=== PATIENT | female | born 1960 | race American Indian/Alaskan Native ===

== ENCOUNTER 2016-11-16 13:41 | Emergency (ER) | payer BC ==
[2016-11-16 15:00] LABS: Bilirubin,Urine NEG (Negative); Blood,Urine NEG (Negative); Ketones,Urine NEG (Negative); Leukocyte Esterase,Urine NEG (Negative); Mucus,Urine FEW /HPF; Nitrite,Urine NEG (Negative); Protein,Urine <15 mg/dL mg/dL (Negative); Urobilinogen,Urine < 2.0 mg/dL (<2.0)
[2016-11-16 15:28] LABS: Alanine Aminotransferase 15 units/L (7-56); Albumin 4.1 g/dL (3.9-5); Alkaline Phosphatase 81 units/L (35-129); Anion Gap 17 mmol/L; BUN/Creatinine Ratio 13; Blood Urea Nitrogen 9 mg/dL (7-17); Calcium 9.3 mg/dL (8.4-10.2); Carbon Dioxide 26 mmol/L (22-30); Chloride 103.8 mmol/L (98-107); Glucose 88 mg/dL (65-100); Lipase 31 units/L (13-60); Potassium 4.1 mmol/L (3.6-5.0); Sodium 143 mmol/L (137-145); Total Protein 8.2 g/dL (6.3-8.2)
[2016-11-16 15:35] LABS: Eosinophils % (Auto) 0.6 % (0.0-4.3); Hematocrit 40.7 % (30.3-42.9); Hemoglobin 13.3 gm/dl (10.1-14.3); Mean Corpuscular HGB Conc 33 % (30-34); Mean Corpuscular Hemoglobin 29 pg (28-32); Mean Corpuscular Volume 88 fl (79-97); Platelet Count 254 K/mm3 (140-440); Red Blood Count 4.64 M/mm3 (3.65-5.03); Red Cell Distribution Width 14.4 % (13.2-15.2); White Blood Count 8.9 K/mm3 (4.5-11.0)
[2016-11-16 15:39] LABS: Basophils % (Auto) 0.8 % (0.0-1.8); Diff Status Complete
[2016-11-16] MEDS ORDERED: MORPHINE IV ONE (23:47)
[2016-11-16] MEDS ORDERED: ZOFRAN IV ONE (23:50)
--- NOTE | 2016-11-16 23:53 | Emergency Department Report ---
ED Abdominal Pain HPI - General Chief Complaint: Abdominal Pain Stated Complaint: RIGHT LOWER ABD PAIN Time Seen by Provider: 11/16/16 23:44 Source: patient Mode of arrival: Ambulatory Limitations: No Limitations - History of Present Illness Initial Comments: Patient is a 56-year-old femalecan past medical history who presents with right lower abdominal pain. Patient states that her symptoms have been going on since yesterday. They've increased since last night. Patient states that the pain is a 9 out of 10 in the right lower quadrant of her abdomen associated pain it's increased with movement nothing makes it better. She states that she' s had no nausea vomiting or diarrhea. She went to an urgent care but she was referred to come to the emergency department. Patient has not tried any over- the-counter medications for her pain. Severity scale (0 -10): 9 - Related Data Allergies Allergy/AdvReac Type Severity Reaction Status Date / Time No Known Allergies Allergy Verified 11/16/16 14:09 ED Review of Systems ROS: Stated complaint: RIGHT LOWER ABD PAIN Other details as noted in HPI Constitutional: denies: chills, fever Eyes: denies: eye pain, eye discharge, vision change ENT: denies: ear pain, throat pain Respiratory: denies: cough, shortness of breath, wheezing Cardiovascular: denies: chest pain, palpitations Endocrine: no symptoms reported Gastrointestinal: abdominal pain. denies: nausea, diarrhea Genitourinary: denies: urgency, dysuria, discharge Musculoskeletal: denies: back pain, joint swelling, arthralgia Skin: denies: rash, lesions Neurological: denies: headache, weakness, paresthesias Psychiatric: denies: anxiety, depression Hematological/Lymphatic: denies: easy bleeding, easy bruising ED Past Medical Hx - Past Medical History Previous Medical History?: No - Surgical History Past Surgical History?: No - Social History Smoking Status: Never Smoker Substance Use Type: None ED Physical Exam - General Limitations: No Limitations General appearance: alert, in no apparent distress - Head Head exam: Present: atraumatic, normocephalic - Eye Eye exam: Present: normal appearance - ENT ENT exam: Present: mucous membranes moist - Neck Neck exam: Present: normal inspection - Respiratory Respiratory exam: Present: normal lung sounds bilaterally. Absent: respiratory distress - Cardiovascular Cardiovascular Exam: Present: regular rate, normal rhythm. Absent: systolic murmur, diastolic murmur, rubs, gallop - GI/Abdominal GI/Abdominal exam: Present: soft, tenderness (in RLQ) - Extremities Exam Extremities exam: Present: normal inspection - Back Exam Back exam: Present: normal inspection - Neurological Exam Neurological exam: Present: alert, oriented X3 - Psychiatric Psychiatric exam: Present: normal affect, normal mood - Skin Skin exam: Present: warm, dry, intact, normal color. Absent: rash ED Course Vital Signs 11/16/16 11/16/16 11/16/16 14:09 21:36 23:25 Temperature 98.7 F 99.4 F Pulse Rate 78 74 Respiratory 16 14 Rate Blood Pressure 150/83 173/86 O2 Sat by Pulse 99 100 96 Oximetry 11/16/16 11/16/16 11/17/16 23:30 23:46 00:00 Temperature Pulse Rate Respiratory Rate Blood Pressure 169/100 148/89 151/81 O2 Sat by Pulse 95 97 94 Oximetry 11/17/16 11/17/16 11/17/16 00:16 00:30 01:30 Temperature Pulse Rate Respiratory Rate Blood Pressure 151/81 151/81 162/76 O2 Sat by Pulse 98 94 98 Oximetry ED Medical Decision Making - Lab Data Result diagrams: 11/16/16 14:42 11/16/16 14:42 Lab Results 11/16/16 11/16/16 11/16/16 Range/Units 14:42 14:42 Unknown WBC 8.9 (4.5-11.0) K/mm3 RBC 4.64 (3.65-5.03) M/mm3 Hgb 13.3 (10.1-14.3) gm/dl Hct 40.7 (30.3-42.9) % MCV 88 (79-97) fl MCH 29 (28-32) pg MCHC 33 (30-34) % RDW 14.4 (13.2-15.2) % Plt Count 254 (140-440) K/mm3 Lymph % (Auto) 30.4 (13.4-35.0) % [place]ock % (Auto) 5.2 (0.0-7.3) % Eos % (Auto) 0.6 (0.0-4.3) % Baso % (Auto) 0.8 (0.0-1.8) % Lymph # 2.7 (1.2-5.4) K/mm3 Bullock # 0.5 (0.0-0.8) K/mm3 Eos # 0.1 (0.0-0.4) K/mm3 Baso # 0.1 (0.0-0.1) K/mm3 Add Manual Diff Complete Seg Neutrophils % 63.0 (40.0-70.0) % Seg Neutrophils # 5.6 (1.8-7.7) K/mm3 Sodium 143 (137-145) mmol/L Potassium 4.1 (3.6-5.0) mmol/L Chloride 103.8 (98-107) mmol/L Carbon Dioxide 26 (22-30) mmol/L Anion Gap 17 mmol/L BUN 9 (7-17) mg/dL Creatinine 0.7 (0.7-1.2) mg/dL Estimated GFR > 60 ml/min BUN/Creatinine Ratio 13 % Glucose 88 (65-100) mg/dL Calcium 9.3 (8.4-10.2) mg/dL Total Bilirubin 0.50 (0.1-1.2) mg/dL AST 15 (5-40) units/L ALT 15 (7-56) units/L Alkaline Phosphatase 81 (35-129) units/L Total Protein 8.2 (6.3-8.2) g/dL Albumin 4.1 (3.9-5) g/dL Albumin/Globulin Ratio 1.0 % Lipase 31 (13-60) units/L Urine Color Yellow (Yellow) Urine Turbidity Clear (Clear) Urine pH 5.0 (5.0-7.0) Ur Specific [place] 1.019 (1.003-1.030) Urine Protein <15 mg/dl (Negative) mg/dL Urine Glucose (UA) Neg (Negative) mg/dL Urine Ketones Neg (Negative) mg/dL Urine Blood Neg (Negative) Urine Nitrite Neg (Negative) Urine Bilirubin Neg (Negative) Urine Urobilinogen < 2.0 (<2.0) mg/dL Ur Leukocyte Esterase Neg (Negative) Urine WBC (Auto) 2.0 (0.0-6.0) /HPF Urine RBC (Auto) 2.0 (0.0-6.0) /HPF U Epithel Cells (Auto) 3.0 (0-13.0) /HPF Urine Mucus Few /HPF - Radiology Data Radiology results: report reviewed, image reviewed CT abdomen: Shows no acute intra-abdominal process. - Medical Decision Making Chief medical diagnosis: Appendicitis Differential medical diagnosis: Cholelithiasis, pancreatitis, urinary tract infection On CBC, CMP, UA, IV pain medication, CT abdomen and po challenge Patient's laboratory and imaging findings are unremarkable. Patient will be sent home to follow up with her primary care provider. Discussed plan with patient and she agrees with plan. Additional verbal discharge instructions were given. Critical care attestation.: If time is entered above; I have spent that time in minutes in the direct care of this critically ill patient, excluding procedure time. ED Disposition Clinical Impression: RLQ abdominal pain Disposition: DC-01 TO HOME OR SELFCARE Is pt being admited?: No Does the pt Need Aspirin: No Condition: Stable Instructions: Abdominal Pain (ED) Referrals: DEANDRA HOLLINS MD [Primary Care Provider] - 3-5 Days
[2016-11-17 01:33] VITALS: BP 162/76
--- NOTE | 2016-11-17 01:38 | Cat Scan Report ---
FINAL REPORT EXAM: CT ABDOMEN PELVIS W/ CONTRAST. HISTORY: RLQ pain. TECHNIQUE: Axial CT images of the abdomen and pelvis were obtained, following the administration of intravenous contrast only. Delayed axial images and coronal and sagittal reformatted images were also obtained. No prior studies are available for comparison. FINDINGS: The liver, biliary tree, gallbladder, pancreas, spleen, adrenal glands, and left kidney are unremarkable. There is a punctate 1-2 mm nonobstructing calculus in the right lower renal pole. There is no evidence of urinary tract obstruction. Evaluation of the bowel is limited due to lack of oral contrast. The stomach is collapsed, not well evaluated. There is no intestinal obstruction or free air. The appendix is not discretely visualized with certainty, though there is no pericecal mass or inflammatory change to suggest acute appendicitis. The descending colon, sigmoid colon, and rectum are collapsed, and underlying wall thickening cannot be evaluated. The abdominal aorta is normal in caliber. There are scattered 3-4 mm right mid abdominal mesenteric and bilateral retroperitoneal lymph nodes, which do not meet size criteria for pathologic enlargement. There is no free or loculated fluid collection. The urinary bladder is unremarkable. There is a 2.5 x 1.6 cm right ovarian cyst. The uterus and left adnexa demonstrate a grossly normal CT appearance. There are mild spondylotic changes seen in the spine. [id number] dependent changes are seen in both posterior lung bases. The heart is mildly enlarged. IMPRESSION: 1. Nonvisualization of the appendix, but no pericecal mass or inflammatory changes to suggest acute appendicitis. No intestinal obstruction or free air. 2. Punctate nonobstructing 1-2 mm right lower pole renal calculus. 3. 2.5 x 1.6 cm right ovarian cyst. This can be further evaluated with pelvic ultrasound, as clinically warranted.
[2016-11-17] MEDS ORDERED: NORCO 10/325 PO ONE (01:54)
== END 2016-11-17 02:23 | disposition home or self-care (01) ==
LOC: ED 13:41
DX: R10.31 Right lower quadrant pain (principal)
CPT/HCPCS: 36415; 74177; 80053; 81001; 83690; 85025; 96374; 96375; 99284; J2270; J2405; Q9967

== ENCOUNTER 2017-01-21 08:02 | Outpatient (CLI) | payer BC ==
--- NOTE | 2017-01-21 08:57 | Mammography Report ---
Right mammogram: Based on recent screening examination additional lateral compression imaging of the breasts is performed. Comparison made to prior study in 2014. Initial images show no significant change from prior examination and no currently suspicious findings. Impression: Stable right breast pattern. Recommendation: Annual mammogram followup. BI-RADS CATEGORY: 1 = Negative ACR BI-RADS MAMMOGRAPHIC CODES: 0 = Needs additional imaging evaluation; 1 = Negative; 2 = Benign; 3 = Probably benign; 4 = Suspicious; 5 = Malignant; 6 = Known biopsy-proven malignancy COMMENT: 1. Dense breast tissue, i.e., adenosis, fibrocystic changes, etc., may obscure an underlying neoplasm. 2. Approximately 10% of cancers are not detected with mammography. 3. A negative mammography report should not delay biopsy if a clinically suspicious mass is present.
== END 2017-01-21 08:03 | disposition home or self-care (01) ==
LOC: MAMMO 08:02
PROVIDERS: ATTEND Obstetrics & Gynecology
DX: R92.8 Other abnormal and inconclusive findings on diagnostic imaging of breast (principal)
CPT/HCPCS: G0206-RT